=== PATIENT | female | born 1975 | race Caucasian/White ===

== ENCOUNTER 2021-09-23 21:39 | Emergency (ER) | payer BC, SELFPAY ==
[2021-09-23 21:53] VITALS: BP 226/114; PULSE 130; RESP 16; TEMP 36.9; O2SAT 100
--- NOTE | 2021-09-23 22:00 | ECG_ITS ---
Measurements Intervals [place] Rate: 121 P: 43 TN: 148 QRS: 23 QRSD: 76 T: 48 QT: 339 QTc: 482 Interpretive Statements SINUS TACHYCARDIA OTHERWISE NORMAL ECG NO PREVIOUS ECG AVAILABLE FOR COMPARISON Electronically Signed On 09-25-2021 16:05:57 CDT by Kiel Rosales M.D.
[2021-09-24] MEDS: ACETAMINOPHEN 500 MG TABLET 1000 MG PO (00:14)
[2021-09-24] MEDS: hydrOXYzine HCL 25 MG TABLET PO (00:15)
[2021-09-24 00:33] LABS: Appearance Urine Clear (Clear); Bilirubin Urine Negative (Negative); Blood Urine 1+ (Negative); Color Urine Yellow (Yellow); Glucose Urine UA 2+ mg/dL (Negative); Ketones Urine 4+ mg/dL (Negative); Leukocyte Esterase Ur Negative LEU/UL (Negative); Nitrate Urine Negative (Negative); Protein Urine Negative (Negative); Specific Grav Ur 1.015 (1.001-1.035); Urobilinogen Urine 0.2 mg/dL (<2.0); pH Urine 5.5 (5.0-9.0)
[2021-09-24 00:44] LABS: Mucus Urine Rare /lpf; Squamous Epithelial Cell Urine Rare /hpf (Few); WBC Urine 0-3 /hpf
[2021-09-24 00:47] LABS: Add Urine Microscopic? YES
[2021-09-24 00:48] LABS: Alanine Aminotransferase 17 U/L (6-35); Alkaline Phosphatase 64 U/L (38-126); Anion Gap 11 mmol/L (8-16); Aspartate Amino Transferase 22 U/L (14-36); Bilirubin,Total 0.4 mg/dL (0.2-1.3); Blood Urea Nitrogen 12 mg/dL (7-17); Calcium 8.9 mg/dL (8.4-10.2); Carbon Dioxide 23 mmol/L (22-30); Chloride 102 mmol/L (98-107); Estimated Glomerular Filt Rate > 60; Glucose 284 mg/dL (65-110); Potassium 3.5 mmol/L (3.4-5.0); Sodium 136 mmol/L (137-145)
--- NOTE | 2021-09-24 02:42 | ED.RECABL ---
HPI - Recheck/Abnormal Lab/Rx General Chief Complaint: Recheck/Abnormal Lab/Rx Stated Complaint: high BP, headache Time Seen by Provider: 09/23/21 23:18 Source: patient Mode of arrival: ambulatory Limitations: no limitations History of Present Illness HPI narrative: 46-year-old female presents today with concerns of high blood pressure. Patient states she took her blood pressure at home and it was in the 200s over 100s. Patient states it stayed high, she had concerns, and started getting anxious so she came into the ER. Patient has not seen a physician in over 8 years. She does have an appointment in the next 3 weeks with a primary. She is a new patient and at this point states she cannot get an appointment sooner. Patient denied any symptoms at that time her blood pressure was noted to be high. Patient states she had got a blood pressure machine from her mother and just decided to take her blood pressure. Patient currently with a headache pain rated 3 out of a 10. Patient denies any vision changes, shortness of breath, chest pain. Related Data Allergies Allergy/AdvReac Type Severity Reaction Status Date / Time No Known Allergies Allergy Unverified 04/01/15 15:03 Review of Systems Review of Systems: CONSTITUTIONAL: Denies fever, chills, or sweats. EYES: Denies visual changes, redness, or discharge. ENT: Denies rhinorrhea, congestion, sore throat, or otalgia. CARDIOVASCULAR: Denies chest pain, palpitations, or edema. RESPIRATORY: Denies cough or dyspnea. GASTROINTESTINAL: Denies abdominal pain, nausea, vomiting, or diarrhea. GENITOURINARY: Denies dysuria or hematuria. SKIN: Denies rash or itching. MUSCULOSKELETAL: Denies back pain, joint pain, or myalgia. NEUROLOGIC: Headache pain rated 3 out of a 10. Denies numbness, dizziness, or weakness. PSYCHIATRIC: Denies anxiety or depression. Exam Narrative: GENERAL: Well-appearing, well-nourished, and in no acute distress. HEAD: Normocephalic, atraumatic. EYES: PERRLA and EOMI. ENT: Nares clear, no rhinorrhea or epistaxis. Mucous membranes moist. Oropharynx without tonsillar hypertrophy exudate or other lesions. Bilateral TMs pearly kelley nonbulging NECK: Supple. No adenopathy or masses. No carotid bruits or JVD CHEST: Clear to auscultation. No respiratory distress. No wheezes rales or rhonchi HEART: Regular rate and rhythm. No murmur heard. Normal peripheral pulses. ABDOMEN: Soft, nontender, nondistended, normal active bowel sounds. EXTREMITIES: Normal range of motion. No edema. SKIN: Warm, dry, no rash. NEURO: No focal deficits. Alert and oriented x3. PSYCH: Normal mood and affect. Course Course Emergency Course: Patient given Tylenol and hydroxyzine for headache and anxiety. Patient monitored during stay. Blood pressure came down to 175/93. Patient without headache. CMP shows GFR greater than 60, BUN 12 creatinine 1.4. Concerning finding of glucose 284. Lab requesting repeat for CBC patient declined and would like to be discharged. Patient has not seen a physician for over 8 years. No signs of infection on urinalysis. Patient states she is on her menses at this time. Noted improvement in blood pressure during stay advise patient to change diet and increased activity then follow-up with primary. Patient also educated on diabetes and encouraged to change diet to decrease blood sugar and to follow-up with primary for any further management. Patient aware to return with any new or worsening symptoms. Vital Signs Vital signs: Vital Signs Temperature 36.9 C 09/23/21 21:53 Pulse Rate 130 H 09/23/21 21:53 Respiratory Rate 16 09/23/21 21:53 Blood Pressure 226/114 H 09/23/21 21:53 Pulse Oximetry 100 09/23/21 21:53 Oxygen Delivery Room Air 09/23/21 21:53 Temperature 36.9 C 09/23/21 21:53 Pulse Rate 130 H 09/23/21 21:53 Respiratory Rate 16 09/23/21 21:53 Blood Pressure 226/114 H 09/23/21 21:53 Pulse Oximetry 100 09/23/21 21:53 Oxygen Del
== END 2021-09-24 03:09 | disposition home or self-care (01) ==
PROVIDERS: Emergency Provider Nurse Practitioner Family
DX: I10 Essential (primary) hypertension (principal); R73.9 Hyperglycemia, unspecified
CPT/HCPCS: 36415; 80053; 81001; 85025; 93005; 99283; A9270